=== PATIENT | female | born 1945 | race Caucasian/White ===

== ENCOUNTER → 2021-01-04 | Outpatient (CLI) | payer MEDICARE | LOC: MAMO 08:30 | DX: Z12.31 Encounter for screening mammogram for malignant neoplasm of breast (principal) | CPT/HCPCS: 77063; 77067 ==

== ENCOUNTER → 2022-02-26 | Outpatient (CLI) | payer MEDICARE | LOC: KOH-I 08:49 | DX: J20.9 Acute bronchitis, unspecified (principal) | CPT/HCPCS: 71046 ==

== ENCOUNTER → 2022-05-14 | Outpatient (CLI) | payer MEDICARE | LOC: EXRD 14:26 | DX: M81.0 Age-related osteoporosis without current pathological fracture (principal) | CPT/HCPCS: 77080 ==

== ENCOUNTER → 2022-06-11 | Outpatient (CLI) | payer MEDICARE ==
[~2022-06-11] VITALS: Ht 160 cm; Wt 58.1 kg
[2022-06-11 10:41] LABS: HEMOGLOBIN 11.9 gm/dl (12.3-15.3); RED BLOOD COUNT 4.12 M/UL (4.00-5.10); WHITE BLOOD COUNT 7.7 K/UL (4.5-11.0)
[2022-06-11 11:05] LABS: BUN/CREATININE RATIO 19 (0-10)
== END ==
LOC: OPSV 09:54 → LAB 09:54
PROVIDERS: Obstetrics & Gynecology Gynecologic Oncology
DX: C48.2 Malignant neoplasm of peritoneum, unspecified (principal)
CPT/HCPCS: 36591; 80053; 83735; 85025; J1642

== ENCOUNTER → 2022-06-19 | Outpatient (CLI) | payer MEDICARE ==
[~2022-06-19] VITALS: Ht 160 cm; Wt 58.1 kg
[2022-06-19 10:15] LABS: HEMOGLOBIN 11.4 gm/dl (12.3-15.3); RED BLOOD COUNT 3.94 M/UL (4.00-5.10); WHITE BLOOD COUNT 4.7 K/UL (4.5-11.0)
[2022-06-19 10:35] LABS: BUN/CREATININE RATIO 20 (0-10)
== END ==
LOC: OPSV 09:00
PROVIDERS: Obstetrics & Gynecology Gynecologic Oncology
DX: C48.2 Malignant neoplasm of peritoneum, unspecified (principal)
CPT/HCPCS: 36591; 80053; 83735; 85025; J1642

== ENCOUNTER → 2022-06-25 | Outpatient (CLI) | payer MEDICARE ==
[2022-06-25 10:12] LABS: HEMOGLOBIN 11.8 gm/dl (12.3-15.3); RED BLOOD COUNT 4.15 M/UL (4.00-5.10)
[2022-06-25 11:08] LABS: BUN/CREATININE RATIO 16 (0-10)
[2022-06-27 12:07] LABS: WHITE BLOOD COUNT 1.3 K/UL (4.5-11.0)
== END ==
LOC: OPSV 09:00
PROVIDERS: Obstetrics & Gynecology Gynecologic Oncology
DX: C48.2 Malignant neoplasm of peritoneum, unspecified (principal)
CPT/HCPCS: 36591; 80053; 83735; 85025; J1642